=== PATIENT | male | born 1970 | race Hispanic/Latino ===

== ENCOUNTER 2016-06-03 12:05 | Observation (INO) | payer OTHER ==
--- NOTE | 2016-06-03 13:25 | RAD ---
HISTORY: for admission COMPARISON: None available. TECHNIQUE: Chest PA and lateral FINDINGS: Examination limited by habitus. LUNGS: No focal consolidation. Please note that chest x-ray has limited sensitivity for the detection of pulmonary masses. PLEURA: No significant pleural effusion identified. No definite pneumothorax . CARDIOVASCULAR: Cardiomegaly. OSSEOUS STRUCTURES: No acute osseous abnormality identified. VISUALIZED UPPER ABDOMEN: Unremarkable. OTHER FINDINGS: None. IMPRESSION: Cardiomegaly.
[2016-06-03 13:43] LABS: BASO # 0.1 K/uL (0.0-0.2); BASO % 0.5 % (0.0-2.0); EOS # 0.5 K/uL (0.0-0.7); EOS % 3.6 % (0.0-4.0); LYMPH % 7.5 % (20.0-40.0); MEAN CELL VOLUME 91.1 fl (80.0-94.0); MEAN CORPUSCULAR HEMOGLOBIN 30.5 pg (27.0-31.0); MEAN CORPUSCULAR HGB CONC 33.5 g/dL (33.0-37.0); MEAN PLATELET VOLUME 9.1 fl (7.2-11.7); MONO # 1.2 K/uL (0.0-0.8); MONO % 8.6 % (0.0-10.0); NEUT # 10.7 K/uL (1.8-7.0); NEUT % 79.8 % (50.0-75.0); NRBC % 0.1 % (0.0-0.0); PLATELET COUNT 214 K/uL (130-400); RED CELL DISTRIBUTION WIDTH 12.6 % (11.5-14.5); WHITE BLOOD COUNT 13.4 K/uL (4.8-10.8)
[2016-06-03 13:48] LABS: CHLORIDE 100 mmol/L (98-107); SODIUM 140 mmol/l (132-148)
[2016-06-03 13:49] LABS: POTASSIUM 4.1 MMOL/L (3.6-5.0)
[2016-06-03 13:51] LABS: GFR AFRICAN-AMERICAN > 60
[2016-06-03 13:52] LABS: BLOOD UREA NITROGEN 13 mg/dl (9-20); CALCIUM 9.5 mg/dL (8.4-10.2); CARBON DIOXIDE 30 mmol/L (22-30); GLUCOSE,RANDOM 96 mg/dL (75-110)
--- NOTE | 2016-06-03 14:01 | ED PDOC ---
HPI: General Adult Time Seen by Provider: 06/03/16 12:55 Chief Complaint (Nursing): Abnormal Skin Integrity Chief Complaint (Provider): left calf redness, pain, swelling History Per: Patient History/Exam Limitations: no limitations Additional Complaint(s): 46yo male comes to the ED complaining of left leg redness for 2 days. Swelling and soreness began yesterday, making it difficult to walk. Patient reports chills and sweats. No fever. States he recently had a negative left lower extremity US as an outpatient. 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 PMD: [facility]: Yasmin Past Medical History Reviewed: Historical Data, Nursing Documentation, Vital Signs Vital Signs: Last Vital Signs Temp 98.3 F 06/03/16 12:37 Pulse 109 H 06/03/16 12:37 Resp 16 06/03/16 12:37 BP 151/80 H 06/03/16 12:37 Pulse Ox 99 06/03/16 14:09 - Medical History PMH: No Chronic Diseases - Surgical History Other surgeries: reconstructive left knee surgery 20 years ago - Family History Family History: States: Unknown Family Hx - Living Arrangements Living Arrangements: With Family - Social History Drugs: Denies - Home Medications Home Medications: Ambulatory Orders Medication Instructions Recorded No Known Home Med 06/03/16 - Allergies Allergies/Adverse Reactions: Allergies Allergy/AdvReac Type Severity Reaction Status Date / Time apple Allergy ITCHING Verified 06/03/16 12:37 peach Allergy ITCHING Verified 06/03/16 12:37 pear Allergy ITCHING Verified 06/03/16 12:37 Review of Systems ROS Statement: Except As Marked, All Systems Reviewed And Found Negative Constitutional: Positive for: Chills, Sweats. Negative for: Fever Musculoskeletal: Positive for: Leg Pain (+leg swelling) Physical Exam - Reviewed Nursing Documentation Reviewed: Yes Vital Signs Reviewed: Yes - Physical Exam Appears: Positive for: Well, Non-toxic, No Acute Distress Head Exam: Positive for: ATRAUMATIC, NORMAL INSPECTION, NORMOCEPHALIC Skin: Positive for: Warm, Dry Eye Exam: Positive for: EOMI, PERRL Cardiovascular/Chest: Positive for: Regular Rate, Rhythm Respiratory: Positive for: Normal Breath Sounds. Negative for: Rales, Rhonchi, Wheezing Extremity: Positive for: Calf Tenderness (left calf, on palpation), Other (left lower extremity from knee to ankle; erythema, tenderness, increased warmth. - Jess's sign. +palpable cord on both legs posteriorly. ) Neurologic/Psych: Positive for: Alert, Oriented (x3). Negative for: Motor/ Sensory Deficits - Laboratory Results Result Diagrams: 06/03/16 13:30 06/03/16 13:30 - ECG O2 Sat by Pulse Oximetry: 99 (RA) Pulse Ox Interpretation: Normal Medical Decision Making Medical Decision Makin Case discussed with Dr. Yasmin elliott who requests repeat US to rule out DVT left lower extremity. impression: cellulitis Plan: -US Left Lower Extremity -Labs -EKG -reassess Disposition - Clinical Impression Clinical Impression: Cellulitis - Patient ED Disposition Is Patient to be Admitted: Yes Doctor Will See Patient In The: Hospital Counseled Patient/Family Regarding: Diagnosis, Need For Followup - Disposition Disposition: Transfer of Care Disposition Time: 14:28 Condition: FAIR - Pt Status Changed To: Hospital Disposition Of: Observation Additional Comments - Additional Comments Additional Comments: Scribe Attestation: Documented by Vinny Burks acting as a scribe for Pura Ronquillo MD. Provider Scribe Attestation: All medical record entries made by the Scribe were at my direction and personally dictated by me. I have reviewed the chart and agree that the record accurately reflects my personal performance of the history, physical exam, medical decision making, and the department course for this patient. I have also personally directed, reviewed, and agree with the discharge instructions and disposition.
[2016-06-03] MEDS ORDERED: Piperacillin/Tazobact 3.375 GM in Sodium Chloride 0.9% 100 ML IVPB STA (14:13)
[2016-06-03] MEDS ORDERED: Piperacillin/Tazobact 3.375 gm Inj IVPB ONE (14:35)
[2016-06-03 14:40] LABS: ERYTHROCYTE SEDIMENTATION RATE 36 mm/hr (0-15)
[2016-06-03] MEDS ORDERED: Oxycodone/Acetaminophen 5/325 mg Tab ONE (15:50)
[2016-06-03] MEDS: Oxycodone/Acetaminophen 5/325 mg Tab PO PRN ×2 (15:57→23:49)
--- NOTE | 2016-06-03 16:00 | US ---
Bilateral lower extremity ultrasound. Indication: Worsening leg swelling Technique: Duplex ultrasound evaluation of the bilateral lower extremities Comparison: None available Findings: There is normal flow, compressibility, and augmentation of the bilateral common femoral, femoral, and popliteal veins. The calf vessels are not well visualized due to soft tissue edema. Impression: Soft tissue edema. No evidence of deep venous thrombosis in the bilateral lower extremities.
[2016-06-03 16:09] LABS: EOSINOPHIL 5 % (0-7); NEUTROPHIL 74 % (42-75); TOTAL CELLS COUNTED 100
--- NOTE | 2016-06-03 17:59 | CP.PCM.PN ---
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 He was unable to ambulate this am, currently using crutches Pt had US of LLE completed as outpt, which was neg for DVT Pt c/o recent low grade fever, occassional chills and sweats Pt seen and examined at bedside, has received IV abx and states he is feeling better and swelling has improved Pt denies any SOB, chest pain, numbness/tingling to LLE Objective - Vital Signs/Intake and Output Vital Signs (last 24 hours): Temp Pulse Resp BP Pulse Ox 100.7 F H 100 H 18 159/98 H 95 06/03/16 17:28 06/03/16 17:28 06/03/16 17:28 06/03/16 17:28 06/03/16 17:28 - Medications Medications: Current Medications Piperacillin Sod/Tazobactam (Sod 3.375 gm/ Sodium Chloride) 100 mls @ 100 mls/ hr IVPB Q6 JF Ketorolac Tromethamine (Toradol) 30 mg IVP Q6 PRN PRN Reason: pain 2-5 Oxycodone/Acetaminophen (Percocet 5/325 Mg Tab) 1 tab PO Q4 PRN PRN Reason: pain 6-10 Stop: 06/06/16 14:34 Last Admin: 06/03/16 15:57 Dose: 1 tab - Extremities Exam Additional comments: LLE: +swelling and erythema from knee down to ankle, erythema region marked on LLE +mild TTP over calf +TTp over anterior shaft of tibia Calf soft and compressible, no sign of compartment syndrome N/V intact Distal pulses wnl Assessment and Plan - Assessment and Plan (Free Text) Assessment: 46 yo M presents with LLE cellulitis Pt admitted for IV abx tx Repeat LLE doppler neg for DVT Continue IV abx tx Pain Control Recommend Ap and lat xrays of left lower leg Will continue to monitor Discussed with Dr. Hoffman
[2016-06-03] MEDS: Piperacillin/Tazobact 3.375 GM in Sodium Chloride 0.9% 100 ML IVPB SCH ×2 (19:43→22:36)
[2016-06-04] MEDS: Piperacillin/Tazobact 3.375 GM in Sodium Chloride 0.9% 100 ML IVPB SCH ×4 (04:12→21:57)
--- NOTE | 2016-06-04 07:17 | CP.PCM.HP ---
History of Present Illness - History of Present Illness History of Present Illness: pt admitted for lle cellulitis. pt had presented to my office 2 days ago for acute left calf pain/swelling w/o erythema nd dvt was r/o. yesterday am stated he could not walk and was sent to ortho where was sent directly to ER. at that time leg was red and swollen further. no f/c, n/v/d. all bw nad imaging utd noted. pt having relief w/ zosyn Present on Admission - Present on Admission Any Indicators Present on Admission: No Review of Systems - Musculoskeletal Musculoskeletal: As Per HPI - Integumentary Integumentary: As Per HPI, Erythema Past Patient History - Past Medical History & Family History Past Medical History?: Yes - Past Social History Smoking Status: Never Smoked - CARDIAC Hx Cardiac Disorders: No - PULMONARY Hx Respiratory Disorders: No - NEUROLOGICAL Hx Neurological Disorder: No - HEENT Hx HEENT Problems: No - RENAL Hx Chronic Kidney Disease: No - ENDOCRINE/METABOLIC Hx Endocrine Disorders: No - HEMATOLOGICAL/ONCOLOGICAL Hx Blood Disorders: No - INTEGUMENTARY Hx Cellulitis: Yes (left lower leg) - MUSCULOSKELETAL/RHEUMATOLOGICAL Hx Falls: No - PSYCHIATRIC Hx Substance Use: No - SURGICAL HISTORY Other/Comment: sinus surgery, finger surgery, left knee surgery - ANESTHESIA Hx Anesthesia: Yes Meds Allergies/Adverse Reactions: Allergies Allergy/AdvReac Type Severity Reaction Status Date / Time apple Allergy ITCHING Verified 06/03/16 12:37 peach Allergy ITCHING Verified 06/03/16 12:37 pear Allergy ITCHING Verified 06/03/16 12:37 Physical Exam - Constitutional Appears: Well, Non-toxic, No Acute Distress - Head Exam Head Exam: ATRAUMATIC, NORMAL INSPECTION, NORMOCEPHALIC - Eye Exam Eye Exam: EOMI, Normal appearance, PERRL Pupil Exam: NORMAL ACCOMODATION, PERRL - ENT Exam ENT Exam: Mucous Membranes Moist, Normal Exam - Neck Exam Neck exam: Positive for: Normal Inspection - Respiratory Exam Respiratory Exam: Clear to Auscultation Bilateral, NORMAL BREATHING PATTERN - Cardiovascular Exam Cardiovascular Exam: REGULAR RHYTHM, RRR, +S1, +S2 - GI/Abdominal Exam GI & Abdominal Exam: Normal Bowel Sounds, Soft. absent: Tenderness - Extremities Exam Extremities exam: Positive for: full ROM, normal capillary refill, pedal pulses present Additional comments: left calf red, swollen, less tenderness - Back Exam Back exam: NORMAL INSPECTION - Neurological Exam Neurological exam: Alert, CN II-XII Intact, Normal Gait, Oriented x3, Reflexes Normal - Psychiatric Exam Psychiatric exam: Normal Affect, Normal Mood - Skin Skin Exam: Dry, Intact, Normal Color, Warm Results - Vital Signs Recent Vital Signs: Last Vital Signs Temp 99 F 06/03/16 20:42 Pulse 99 H 06/03/16 20:42 Resp 18 06/03/16 20:42 BP 154/82 H 06/03/16 20:42 Pulse Ox 95 06/03/16 20:42 - Labs Result Diagrams: 06/04/16 06:44 06/04/16 06:44 Assessment & Plan (1) Cellulitis Assessment and Plan: zosyn pain control ortho us negative xr pending Status: Acute (2) DVT prophylaxis Assessment and Plan: scd and ae hose ambulation Status: Acute Decision To Admit - Pt Status Changed To: Hospital Disposition Of: Observation - . Bed Request Type: Med/Surg Admitting Physician: Balbina Cardona
[2016-06-04 07:28] LABS: BASO % 0.3 % (0.0-2.0); EOS # 0.7 K/uL (0.0-0.7); EOS % 6.7 % (0.0-4.0); HEMATOCRIT 44.9 % (35.0-51.0); LYMPH # 1.6 K/uL (1.0-4.3); LYMPH % 14.9 % (20.0-40.0); MEAN CELL VOLUME 91.2 fl (80.0-94.0); MEAN CORPUSCULAR HEMOGLOBIN 30.9 pg (27.0-31.0); MEAN CORPUSCULAR HGB CONC 33.9 g/dL (33.0-37.0); MEAN PLATELET VOLUME 9.1 fl (7.2-11.7); MONO # 1.1 K/uL (0.0-0.8); MONO % 10.8 % (0.0-10.0); NEUT # 7.1 K/uL (1.8-7.0); NEUT % 67.3 % (50.0-75.0); NRBC % 0.3 % (0.0-0.0); RED CELL DISTRIBUTION WIDTH 12.5 % (11.5-14.5); WHITE BLOOD COUNT 10.5 K/uL (4.8-10.8)
[2016-06-04 07:30] LABS: ALB/GLOB RATIO 1.1 (1.0-2.1); ALKALINE PHOSPHATASE 68 U/L (38-126); ALT/SGPT 29 U/L (21-72); AST/SGOT 89 U/L (17-59); BILIRUBIN,TOTAL 0.7 mg/dl (0.2-1.3); BLOOD UREA NITROGEN 15 mg/dl (9-20); CALCIUM 8.7 mg/dL (8.4-10.2); CARBON DIOXIDE 24 mmol/L (22-30); CHLORIDE 103 mmol/L (98-107); GFR AFRICAN-AMERICAN > 60; GLUCOSE,RANDOM 97 mg/dL (75-110); POTASSIUM 4.4 MMOL/L (3.6-5.0); SODIUM 140 mmol/l (132-148); TOTAL PROTEIN 7.1 G/DL (6.3-8.2)
[2016-06-04] MEDS: Oxycodone/Acetaminophen 5/325 mg Tab PO PRN (15:40)
[2016-06-05] MEDS: Oxycodone/Acetaminophen 5/325 mg Tab PO PRN (00:34)
[2016-06-05] MEDS: Piperacillin/Tazobact 3.375 GM in Sodium Chloride 0.9% 100 ML IVPB SCH (04:29)
[2016-06-05 06:54] LABS: BASO % 0.4 % (0.0-2.0); EOS # 0.7 K/uL (0.0-0.7); EOS % 8.3 % (0.0-4.0); HEMATOCRIT 42.4 % (35.0-51.0); LYMPH # 1.8 K/uL (1.0-4.3); LYMPH % 21.6 % (20.0-40.0); MEAN CELL VOLUME 90.7 fl (80.0-94.0); MEAN CORPUSCULAR HEMOGLOBIN 31.4 pg (27.0-31.0); MEAN CORPUSCULAR HGB CONC 34.7 g/dL (33.0-37.0); MEAN PLATELET VOLUME 8.3 fl (7.2-11.7); MONO % 12.3 % (0.0-10.0); NEUT # 4.7 K/uL (1.8-7.0); NEUT % 57.4 % (50.0-75.0); NRBC % 0.1 % (0.0-0.0); RED CELL DISTRIBUTION WIDTH 12.5 % (11.5-14.5); WHITE BLOOD COUNT 8.1 K/uL (4.8-10.8)
[2016-06-05 07:07] LABS: ALKALINE PHOSPHATASE 60 U/L (38-126); ALT/SGPT 34 U/L (21-72); AST/SGOT 85 U/L (17-59); BILIRUBIN,TOTAL 0.7 mg/dl (0.2-1.3); BLOOD UREA NITROGEN 13 mg/dl (9-20); CALCIUM 8.9 mg/dL (8.4-10.2); CARBON DIOXIDE 23 mmol/L (22-30); CHLORIDE 105 mmol/L (98-107); GFR AFRICAN-AMERICAN > 60; GLUCOSE,RANDOM 97 mg/dL (75-110); POTASSIUM 4.6 MMOL/L (3.6-5.0); SODIUM 143 mmol/l (132-148)
[2016-06-05 07:50] VITALS: BP 150/87; PULSE 80; RESP 20; TEMP 98.9; O2SAT 96
--- NOTE | 2016-06-05 08:04 | CP.PCM.CON ---
History of Present Illness - History of Present Illness History of Present Illness: 46 yo M seen in orthopaedic office 2 days ago, sent to ER for admission for IV abx for LLE cellulitis. Pt states his LLE swelling and redness have improved, and he is able to ambulate on LLE today. Pt denies any SOB, chest pain, N/V/D, numbness/tingling LLE. Review of Systems - Integumentary Integumentary: As Per HPI, Erythema, Swelling Past Patient History - Past Medical History & Family History Past Medical History?: Yes - Past Social History Smoking Status: Never Smoked - CARDIAC Hx Cardiac Disorders: No - PULMONARY Hx Respiratory Disorders: No - NEUROLOGICAL Hx Neurological Disorder: No - HEENT Hx HEENT Problems: No - RENAL Hx Chronic Kidney Disease: No - ENDOCRINE/METABOLIC Hx Endocrine Disorders: No - HEMATOLOGICAL/ONCOLOGICAL Hx Blood Disorders: No - INTEGUMENTARY Hx Cellulitis: Yes (left lower leg) - MUSCULOSKELETAL/RHEUMATOLOGICAL Hx Falls: No - PSYCHIATRIC Hx Substance Use: No - SURGICAL HISTORY Other/Comment: sinus surgery, finger surgery, left knee surgery - ANESTHESIA Hx Anesthesia: Yes Meds Allergies/Adverse Reactions: Allergies Allergy/AdvReac Type Severity Reaction Status Date / Time apple Allergy ITCHING Verified 06/03/16 12:37 peach Allergy ITCHING Verified 06/03/16 12:37 pear Allergy ITCHING Verified 06/03/16 12:37 - Medications Medications: Current Medications Piperacillin Sod/Tazobactam (Sod 3.375 gm/ Sodium Chloride) 100 mls @ 100 mls/ hr IVPB Q6 JF Last Admin: 06/05/16 04:29 Dose: 100 mls/hr Ketorolac Tromethamine (Toradol) 30 mg IVP Q6 PRN PRN Reason: pain 2-5 Last Admin: 06/04/16 09:38 Dose: 30 mg Oxycodone/Acetaminophen (Percocet 5/325 Mg Tab) 1 tab PO Q4 PRN PRN Reason: pain 6-10 Stop: 06/06/16 14:34 Last Admin: 06/05/16 00:34 Dose: 1 tab Physical Exam - Constitutional Appears: Well, No Acute Distress - Respiratory Exam Respiratory Exam: Clear to Auscultation Bilateral, NORMAL BREATHING PATTERN - Cardiovascular Exam Cardiovascular Exam: REGULAR RHYTHM - Extremities Exam Extremities exam: Positive for: calf tenderness Additional comments: LLE: +swelling and erythema, reduced from previous exam +mild TTP left calf +TTP over mid shaft tibia Calf soft and compressible, no sign of compartment syndrome Normal ROM at ankle and all digits, no pain with dorsiflexion of 1st digit N/V intact DP and PT pulses wnl Results - Vital Signs Recent Vital Signs: Last Vital Signs Temp 98.9 F 06/05/16 07:49 Pulse 80 06/05/16 07:49 Resp 20 06/05/16 07:49 BP 150/87 06/05/16 07:49 Pulse Ox 96 06/05/16 07:49 - Labs Result Diagrams: 06/05/16 06:44 06/05/16 06:44 Labs: Laboratory Results - last 24 hr 06/05/16 06:44 WBC 8.1 RBC 4.68 Hgb 14.7 Hct 42.4 MCV 90.7 MCH 31.4 H MCHC 34.7 RDW 12.5 Plt Count 219 MPV 8.3 Neut % (Auto) 57.4 Lymph % (Auto) 21.6 Harris % (Auto) 12.3 H Eos % (Auto) 8.3 H Baso % (Auto) 0.4 Neut # 4.7 Lymph # 1.8 Harris # 1.0 H Eos # 0.7 Baso # 0.0 Sodium 143 Potassium 4.6 Chloride 105 Carbon Dioxide 23 Anion Gap 19 BUN 13 Creatinine 0.9 Est GFR ( Amer) > 60 Est GFR (Non-Af Amer) > 60 Random Glucose 97 Calcium 8.9 Total Bilirubin 0.7 AST 85 H ALT 34 Alkaline Phosphatase 60 Total Protein 7.0 Albumin 3.5 Globulin 3.5 Albumin/Globulin Ratio 1.0 Assessment & Plan - Assessment and Plan (Free Text) Assessment: 46 yo M presents with LLE cellulitis x 2 days ago Continue IV abx tx Left tib/fib AP and lat xrays if tibia pain does not resolve Pain Control PT/OT- WBAT LLE DVT ppx Continue current management as per primary team
--- NOTE | 2016-06-05 08:40 | CP.PCM.DIS ---
Provider - Provider Date of Admission: 06/03/16 14:30 Attending physician: Balbina Cardona MD Time Spent in preparation of Discharge (in minutes): 15 Diagnosis - Discharge Diagnosis (1) Cellulitis Status: Acute (2) DVT prophylaxis Status: Acute Hospital Course - Lab Results Lab Results: Most Recent Lab Values WBC 8.1 K/uL (4.8-10.8) 06/05/16 06:44 RBC 4.68 Mil/uL (4.40-5.90) 06/05/16 06:44 Hgb 14.7 g/dL (12.0-18.0) 06/05/16 06:44 Hct 42.4 % (35.0-51.0) 06/05/16 06:44 MCV 90.7 fl (80.0-94.0) 06/05/16 06:44 MCH 31.4 pg (27.0-31.0) H 06/05/16 06:44 MCHC 34.7 g/dL (33.0-37.0) 06/05/16 06:44 RDW 12.5 % (11.5-14.5) 06/05/16 06:44 Plt Count 219 K/uL (130-400) 06/05/16 06:44 MPV 8.3 fl (7.2-11.7) 06/05/16 06:44 Neut % (Auto) 57.4 % (50.0-75.0) 06/05/16 06:44 Lymph % (Auto) 21.6 % (20.0-40.0) 06/05/16 06:44 Wagoner % (Auto) 12.3 % (0.0-10.0) H 06/05/16 06:44 Eos % (Auto) 8.3 % (0.0-4.0) H 06/05/16 06:44 Baso % (Auto) 0.4 % (0.0-2.0) 06/05/16 06:44 Neut # 4.7 K/uL (1.8-7.0) 06/05/16 06:44 Lymph # 1.8 K/uL (1.0-4.3) 06/05/16 06:44 Wagoner # 1.0 K/uL (0.0-0.8) H 06/05/16 06:44 Eos # 0.7 K/uL (0.0-0.7) 06/05/16 06:44 Baso # 0.0 K/uL (0.0-0.2) 06/05/16 06:44 Neutrophils % (Manual) 74 % (42-75) 06/03/16 13:30 Lymphocytes % (Manual) 15 % (20-50) L 06/03/16 13:30 Monocytes % (Manual) 6 % (0-10) 06/03/16 13:30 Eosinophils % (Manual) 5 % (0-7) 06/03/16 13:30 Platelet Estimate Normal (NORMAL) 06/03/16 13:30 RBC Morphology Normal (NORMAL) 06/03/16 13:30 ESR 36 mm/hr (0-15) H 06/03/16 13:30 Sodium 143 mmol/l (132-148) 06/05/16 06:44 Potassium 4.6 MMOL/L (3.6-5.0) 06/05/16 06:44 Chloride 105 mmol/L (98-107) 06/05/16 06:44 Carbon Dioxide 23 mmol/L (22-30) 06/05/16 06:44 Anion Gap 19 (10-20) 06/05/16 06:44 BUN 13 mg/dl (9-20) 06/05/16 06:44 Creatinine 0.9 mg/dL (0.8-1.5) 06/05/16 06:44 Est GFR ( Amer) > 60 06/05/16 06:44 Est GFR (Non-Af Amer) > 60 06/05/16 06:44 Random Glucose 97 mg/dL (75-110) 06/05/16 06:44 Calcium 8.9 mg/dL (8.4-10.2) 06/05/16 06:44 Total Bilirubin 0.7 mg/dl (0.2-1.3) 06/05/16 06:44 AST 85 U/L (17-59) H 06/05/16 06:44 ALT 34 U/L (21-72) 06/05/16 06:44 Alkaline Phosphatase 60 U/L (38-126) 06/05/16 06:44 Total Protein 7.0 G/DL (6.3-8.2) 06/05/16 06:44 Albumin 3.5 g/dL (3.5-5.0) 06/05/16 06:44 Globulin 3.5 gm/dL (2.2-3.9) 06/05/16 06:44 Albumin/Globulin Ratio 1.0 (1.0-2.1) 06/05/16 06:44 Discharge Exam - Head Exam Head Exam: ATRAUMATIC, NORMAL INSPECTION, NORMOCEPHALIC Discharge Plan - Discharge Medications Prescriptions: Amoxicillin/Clavulanate [Augmentin 875 MG-125 MG] 1 tab PO BID #14 tab oxyCODONE/Acetaminophen [Percocet 5/325 mg Tab] 1 tab PO Q4 PRN #20 tab PRN Reason: pain 6-10 - Follow Up Plan Condition: FAIR Disposition: HOME/ ROUTINE Additional Instructions: f/urmg, ortho rted prn, meds per med rec lle cellulitis
--- NOTE | 2016-06-05 13:32 | PN ---
DATE: 06/05/2016 The patient is evaluated today in bed. No complaints, no distress. Left lower extremity still with very slight erythema, but no pain, much softer today. No numbness, tingling or weakness. Distal pulses, motor and sensation are intact. Blood work is noted, within normal limits. Case discussed with ortho. REVIEW OF SYSTEMS: Left lower extremity decreasing erythema, swelling, pain. PHYSICAL EXAMINATION: GENERAL: Alert and oriented. HEART: Regular rate and rhythm. No murmurs, rubs, or gallops. LUNGS: Clear in all arzate bilaterally. ABDOMEN: Soft, nontender. Bowel sounds x 4. EXTREMITIES: Distal pulses, motor and sensation intact. Cap refill is brisk. Left calf less erythema, less swelling, less tenderness, less pain, has full range of motion. DIAGNOSIS AND PLAN: Left calf cellulitis. We will keep patient for his next dose of IV antibiotics, then discharge home on Augmentin, Tylenol/motrin with food for pain or fever, Percocet for severe pain. Follow up with this provider on Wednesday, or sooner if needed. Follow up with ortho 1 week. Return to hospital for any problems, for fevers, pain, swelling or any other complications. Rick WILSON cc: [id number] TT: 06/05/2016 13:31:41 Confirmation # [id number] Dictation # [id number] en MTDD
--- NOTE | 2016-06-05 18:21 | CARD ---
APPROVED REPORT EKG Measurement Heart [id number] <Conclusion> Normal sinus rhythm Normal ECG
== END 2016-06-05 11:16 | disposition home or self-care (01) ==
LOC: H.ER 12:05 → H.ERHOLD 14:30 → H.MEDSURG1 16:11
PROVIDERS: ADMIT Family Medicine; ATTEND Family Medicine
DX: L03.116 Cellulitis of left lower limb (principal)